=== PATIENT | female | born 1975 | race Caucasian/White ===

== ENCOUNTER 2017-03-01 11:40 | Emergency (ER) | payer MEDICAID ==
[~2017-03-01] VITALS: Ht 154.9 cm; Wt 65.8 kg
[2017-03-01 12:26] LABS: *BILIRUBIN,URIN NEGATIVE (NEGATIVE); *BLOOD, URINE 3+ (NEGATIVE); *CLARITY,URINE CLEAR (CLEAR); *COLOR,URINE YELLOW (YELLOW); *KETONES,URINE NEGATIVE (NEGATIVE); *PROTEIN,URINE 2+ (NEGATIVE); *UROBILINOGEN,URINE 0.2 E.U./dl (NORMAL); LEUKOCYTE ESTERASE ,URINE TRACE (NEGATIVE); NITRITE, URINE NEGATIVE (NEGATIVE); UGLUCOSE NEGATIVE (NEGATIVE)
[2017-03-01 12:27] LABS: *URINE HCG, QUAL NEGATIVE (NEGATIVE)
[2017-03-01 12:34] LABS: BACTERIA,URINE FEW /HPF (NONE SEEN); RBC,URINE TNTC /HPF (0-3); SQUAMOUS EPITHELIAL CELL,UR FEW /HPF (NONE SEEN)
[2017-03-01 12:49] LABS: BASOPHILS # (AUTO) 0.4 K/uL (0.0-8.0); BASOPHILS % (AUTO) 2.5 % (0.0-2.0); EOSINOPHILS % (AUTO) 0.3 % (0.0-7.0); HEMATOCRIT 40.6 % (37-47); HEMOGLOBIN 13.8 G/DL (12.0-16.0); LYMPHOCYTES % (AUTO) 19.6 % (20.5-51.5); MEAN CORPUSCULAR HEMOGLOBIN 31.7 UUG (27.0-31.0); MEAN CORPUSCULAR HGB CONC 34 g/dL (32.0-37.0); MONOCYTES # (AUTO) 1.3 K/UL (0.1-1.30); MONOCYTES % (AUTO) 8.7 % (0.0-11.0); NEUTROPHILS # (AUTO) 10.7 K/UL (1.8-8.9); NEUTROPHILS % (AUTO) 68.9 % (38.5-71.5); PLATELET COUNT (AUTO) 282 K/UL (150-450); RED BLOOD CELL COUNT(AUTO) 4.37 MIL/UL (4.2-5.4); WHITE BLOOD COUNT (AUTO) 15.4 K/UL (4.0-11.2)
[2017-03-01 12:59] LABS: CREATININE 0.6 mg/dL (0.6-1.3); POTASSIUM 3.8 mmol/L (3.5-5.1)
[2017-03-01] MEDS ORDERED: CEPHALEXIN MONOHYDRATE 500 MG CAPSULE PO ONE (13:15)
[2017-03-01] MEDS ORDERED: PHENAZOPYRIDINE HCL 100 MG TABLET PO ONE (13:15)
--- NOTE | 2017-03-01 13:28 | NUR ---
Patient discharged to home in stable conditon. Written and verbal after care instructions given to patient. Patient verbalizes understanding of instructions.
[2017-03-01] MEDS ORDERED: CEPHALEXIN MONOHYDRATE 500 MG CAPSULE ONE (13:32)
[2017-03-01] MEDS ORDERED: PHENAZOPYRIDINE HCL 100 MG TABLET ONE (13:32)
== END 2017-03-01 13:29 | disposition home or self-care (01) ==
LOC: ER 11:40
DX: N39.0 Urinary tract infection, site not specified (principal); R31.9 Hematuria, unspecified
CPT/HCPCS: 36415; 84703; 85025; 87086; A4663

== ENCOUNTER 2017-07-26 19:20 | Inpatient (IN) | payer MEDICAID ==
[~2017-07-26] VITALS: Ht 154.9 cm; Wt 79.4 kg
--- NOTE | 2017-07-26 19:44 | NUR ---
JARED DON AT BEDSIDE FOR MSE.
--- NOTE | 2017-07-26 19:51 | NUR ---
PT AMBULATED TO BATHROOM W/ STEADY GAIT. DENIES DIZZINESS OR FEELING LIGHTHEADED.
--- NOTE | 2017-07-26 19:55 | NUR ---
LAB AT BEDSIDE FOR DRAW.
[2017-07-26 20:13] LABS: BASOPHILS # (AUTO) 0.1 K/uL (0.0-8.0); BASOPHILS % (AUTO) 0.9 % (0.0-2.0); EOSINOPHILS # (AUTO) 0.1 K/uL (0.0-0.7); EOSINOPHILS % (AUTO) 1.1 % (0.0-7.0); HEMATOCRIT 39.4 % (31.2-41.9); HEMOGLOBIN 13.4 g/dL (10.9-14.3); LYMPHOCYTES # (AUTO) 3.3 K/uL (20.0-40.0); LYMPHOCYTES % (AUTO) 35.9 % (20.5-51.5); MEAN CORPUSCULAR HGB CONC 34 g/dL (32.3-35.6); MEAN CORPUSCULAR VOLUME 94.1 fL (75.5-95.3); MONOCYTES % (AUTO) 10.7 % (0.0-11.0); NEUTROPHILS # (AUTO) 4.7 K/uL (1.8-8.9); NEUTROPHILS % (AUTO) 51.4 % (38.5-71.5); PLATELET COUNT (AUTO) 289 K/uL (179-408); RED BLOOD CELL COUNT(AUTO) 4.19 MIL/uL (3.63-4.92); WHITE BLOOD COUNT (AUTO) 9.2 K/uL (3.8-11.8)
[2017-07-26 20:18] LABS: CREATININE 0.8 mg/dL (0.6-1.3); POTASSIUM 3.9 mmol/L (3.5-5.1)
[2017-07-26 20:24] LABS: BILIRUBIN,DIRECT 0.1 mg/dL (0.0-0.2); BILIRUBIN,TOTAL 0.4 mg/dL (0.2-1.0); TOTAL PROTEIN, SERUM 7.5 g/dL (6.4-8.2)
--- NOTE | 2017-07-26 20:25 | NUR ---
US AT BEDSIDE.
--- NOTE | 2017-07-26 21:13 | NUR ---
AT BEDSIDE FOR PT UPDATE.
[2017-07-26 21:31] LABS: *BILIRUBIN,URIN NEGATIVE (NEGATIVE); *BLOOD, URINE NEGATIVE (NEGATIVE); *CLARITY,URINE SLIGHTLY CLOUDY (CLEAR); *COLOR,URINE YELLOW (YELLOW); *KETONES,URINE NEGATIVE (NEGATIVE); *PROTEIN,URINE NEGATIVE (NEGATIVE); *UROBILINOGEN,URINE 0.2 E.U./dl (NORMAL); LEUKOCYTE ESTERASE ,URINE NEGATIVE (NEGATIVE); NITRITE, URINE NEGATIVE (NEGATIVE); UGLUCOSE NEGATIVE (NEGATIVE)
[2017-07-26 21:50] LABS: BACTERIA,URINE NONE SEEN /HPF (NONE SEEN); RBC,URINE 0-3 /HPF (0-3); SQUAMOUS EPITHELIAL CELL,UR FEW /HPF (NONE SEEN); WBC,URINE 0-3 /HPF (0-3)
--- NOTE | 2017-07-26 22:41 | NUR ---
Pt. admitted to med surg, under care of Dr. Bateman Belongs List completed
[2017-07-26 22:45] VITALS: BP 108/71
--- NOTE | 2017-07-26 22:45 | NUR ---
nsg: pt received a/o x 4 fr er via [employer] with dx of ectopic . experiencing afshan flank pain, 11/13. denies n/v, sob. denies bleeding at this time. cont to monitor. call light within reach.
[2017-07-26] MEDS ORDERED: MORPHINE SULFATE 4 MG/1 ML DISP.SYRIN IV PRN (23:00)
[2017-07-26] MEDS ORDERED: ACETAMINOPHEN 650 MG SUPP.RECT RC PRN (23:00)
[2017-07-26] MEDS ORDERED: ONDANSETRON 4 MG/2 ML VIAL IV PRN (23:00)
[2017-07-26] MEDS: IV D5/ 0.9% NACL 1,000 ML IV PRN (23:38)
--- NOTE | 2017-07-27 | NUR ---
nsg: pt has afshan flank pain but refused morphine. said pain is manageable. daughter at the bedside. strict npo. on cont ivf. cont with treatment plan.
[2017-07-27 04:00] VITALS: BP 93/57
--- NOTE | 2017-07-27 05:27 | NUR ---
nsg: pt comfortable sleeping. spouse at the bedside. on strict npo. receiving cont ivf.
[2017-07-27 06:59] LABS: BILIRUBIN,TOTAL 0.6 mg/dL (0.2-1.0); CREATININE 0.6 mg/dL (0.6-1.3); MAGNESIUM 2.1 mg/dL (1.8-2.4); PHOSPHOROUS 3.6 mg/dL (2.5-4.9); POTASSIUM 3.4 mmol/L (3.5-5.1); TOTAL PROTEIN, SERUM 6.3 g/dL (6.4-8.2)
--- NOTE | 2017-07-27 07:30 | NUR ---
Received client in bed, awake, alert and oriented time four. Client states discomfort in her lower back but denies and pain medication at this time. Male visitor by her side. Client is noted with no SOB, distress or discomfort. Bed is at lowest position for safety and call light within reach for assistance. Client is NPO at this time due to possible surgery or procedure by OBGYN. IV hydration running at this time
[2017-07-27 07:36] LABS: BASOPHILS % (AUTO) 0.6 % (0.0-2.0); EOSINOPHILS # (AUTO) 0.1 K/uL (0.0-0.7); EOSINOPHILS % (AUTO) 1.3 % (0.0-7.0); HEMATOCRIT 36.9 % (31.2-41.9); HEMOGLOBIN 12.6 g/dL (10.9-14.3); LYMPHOCYTES # (AUTO) 2.9 K/uL (20.0-40.0); LYMPHOCYTES % (AUTO) 37.5 % (20.5-51.5); MEAN CORPUSCULAR HEMOGLOBIN 32.6 uug (24.7-32.8); MEAN CORPUSCULAR HGB CONC 34 g/dL (32.3-35.6); MONOCYTES # (AUTO) 0.8 K/uL (2.0-10.0); MONOCYTES % (AUTO) 10.5 % (0.0-11.0); NEUTROPHILS # (AUTO) 3.8 K/uL (1.8-8.9); NEUTROPHILS % (AUTO) 50.1 % (38.5-71.5); PLATELET COUNT (AUTO) 274 K/uL (179-408); RED BLOOD CELL COUNT(AUTO) 3.88 MIL/uL (3.63-4.92); WHITE BLOOD COUNT (AUTO) 7.6 K/uL (3.8-11.8)
[2017-07-27 11:08] VITALS: BP 100/59
[2017-07-27] MEDS: IV D5/ 0.9% NACL 1,000 ML IV PRN (12:45)
[2017-07-27] MEDS ORDERED: ACETAMINOPHEN 325 MG TABLET PO ONE (12:45)
--- NOTE | 2017-07-27 12:48 | NUR ---
consult taking place at this time. Tylenol PO given as a one time dose, OK per
--- NOTE | 2017-07-27 14:30 | NUR ---
Orders for Regular diet, NPO DC. No surgery or procedure at this time stated by OBGYN.
[2017-07-27 15:13] VITALS: BP 96/54
[2017-07-27] MEDS: ACETAMINOPHEN 325 MG TABLET PO PRN (18:26)
--- NOTE | 2017-07-27 18:30 | NUR ---
Tylenol given, client is c/o headache. Mesh underwear and panty liners provided as requested by client.
--- NOTE | 2017-07-27 19:22 | NUR ---
End of shift notes: client has been compliant with nursing care. Client was educated on her condition, client had several questions and answers were provided as accurate as possible. Daughter has been by bedside most of the day. No signs and symptoms of distress or SOB. Some discomfort and headache noted as stated by client. Discharge is schedule for tomorrow since client stated she still felt weak and experienced dizzy episodes while walking to the restroom and discomfort around the lower part of the abdomen. Call light within reach for assistance and bed at lowest position for safety. IV hydration running at this time with no complications. Daughter is by bedside.
[2017-07-27 20:00] VITALS: BP 99/53
--- NOTE | 2017-07-27 20:00 | NUR ---
RECEIVED PATIENT AWAKE IN IN BED, SHE'S AOX4. SHE C/O PAIN 4/10 IN THE LOWER BACK, OFFERED PRN PAIN MEDS PATIENT DECLINED. NO RESP DISTRESS AT PRESENT. ALL SAFETY MEASURES IN PLACE, CALL LIGHT WITHIN PATIENT'S REACH. FAMILY AT BEDSIDE, WILL CONTINUE TO MONITOR PATIENT.
--- NOTE | 2017-07-27 22:00 | NUR ---
SEEN BY MD ALONZO
[2017-07-28] MEDS: IV D5/ 0.9% NACL 1,000 ML IV PRN (04:56)
[2017-07-28 05:03] VITALS: BP 96/56
[2017-07-28 06:52] LABS: BASOPHILS # (AUTO) 0.1 K/uL (0.0-8.0); BASOPHILS % (AUTO) 0.7 % (0.0-2.0); EOSINOPHILS # (AUTO) 0.1 K/uL (0.0-0.7); HEMATOCRIT 38.4 % (31.2-41.9); HEMOGLOBIN 13.2 g/dL (10.9-14.3); LYMPHOCYTES # (AUTO) 2.4 K/uL (20.0-40.0); LYMPHOCYTES % (AUTO) 32.8 % (20.5-51.5); MEAN CORPUSCULAR HEMOGLOBIN 32.8 uug (24.7-32.8); MEAN CORPUSCULAR HGB CONC 35 g/dL (32.3-35.6); MEAN CORPUSCULAR VOLUME 95.2 fL (75.5-95.3); MONOCYTES # (AUTO) 0.8 K/uL (2.0-10.0); MONOCYTES % (AUTO) 11.4 % (0.0-11.0); NEUTROPHILS # (AUTO) 3.9 K/uL (1.8-8.9); NEUTROPHILS % (AUTO) 54.1 % (38.5-71.5); PLATELET COUNT (AUTO) 267 K/uL (179-408); RED BLOOD CELL COUNT(AUTO) 4.03 MIL/uL (3.63-4.92); WHITE BLOOD COUNT (AUTO) 7.2 K/uL (3.8-11.8)
--- NOTE | 2017-07-28 06:57 | NUR ---
PATIENT SLEPT WELL THROUGH THE NIGHT. NO C/O PF PAIN AT PRESENT. PATIENT REPORTED A SMALL AMOUNT OF BLOOD ONCE. NO FURTHER BLEEDING, NO DIZZINESS ON THIS SHIFT. SAFETY MEASURES MAINTAINED, CALL LIGHT WITHIN PATIENT'S REACH
--- NOTE | 2017-07-28 07:05 | NUR ---
Received client in bed awake, alert and oriented times four. Client states that she slept well but still had bleeding episodes during the night and has back lower pain around her waist area. Bed is at lowest position for safety and call light within reach for assistance. Client wants to make sure is is not going to be discharged this early in the morning. Assured client that if she got discharged it would be later on during the day.
[2017-07-28 07:08] LABS: CREATININE 0.7 mg/dL (0.6-1.3); PHOSPHOROUS 3.3 mg/dL (2.5-4.9); POTASSIUM 3.8 mmol/L (3.5-5.1)
--- NOTE | 2017-07-28 09:33 | NUR ---
Client is stating a headache 5/10 on pain scale. C/o of slight dizziness when is walks and a little in bed. Client also states lower back bilateral around the waist. Tylenol given for pain management of headache
[2017-07-28] MEDS: ACETAMINOPHEN 325 MG TABLET PO PRN (09:43)
--- NOTE | 2017-07-28 09:49 | NUR ---
Tylenol given without bar code scanning. Pharmacy aware, replied was given to give as is without scanning.
[2017-07-28 11:20] VITALS: BP 95/59
--- NOTE | 2017-07-28 15:08 | NUR ---
Client asked if the . can come and explain to her all the tests that were done today before discharge, Client states she still has lower back pain and some blood noted in her urine. Case management and social service aware, Dr will be informed of client's wishes.
[2017-07-28 16:00] VITALS: BP 99/67
--- NOTE | 2017-07-28 18:41 | NUR ---
End of shift notes: Client is being discharged with discharge order from Follow up appointment with OBGYN is recommended as soon as possible. All question by client were answered as accurately as possible. Noted that client is very concern about the possibility of still having a baby inside. Client is in stable condition, boyfriend is by bedside. IV removed and hydration DC'd, waiting for final orders from . VS WNL.
[2017-07-28] MEDS ORDERED: ACET325T53 PO (19:00)
--- NOTE | 2017-07-28 20:40 | NUR ---
PATIENT DISCHARGED HOME PER MD ORDERS, DISCHARGE TEACHING AND INSTRUCTIONS PROVIDED TO PATIENT
[2017-07-28 20:54] VITALS: BP 102/70
== END 2017-07-28 20:45 | disposition home or self-care (01) | DRG 564 ==
LOC: ER 19:21 → MED 22:17
PROVIDERS: ADMIT Internal Medicine; ATTEND Internal Medicine
DX: O02.1 Missed abortion (principal); O08.1 Delayed or excessive hemorrhage following ectopic and molar pregnancy; E66.9 Obesity, unspecified; Z68.33 Body mass index [BMI] 33.0-33.9, adult; E87.6 Hypokalemia
CPT/HCPCS: 36415; 76856; 83735; 84100; 85025; 85730; 86850; 86900; 86901; 87077; 87086; A4663; J3490; J7042